=== PATIENT | female | born 1960 | race Caucasian/White ===

== ENCOUNTER → 2022-06-29 13:12 | Outpatient (BNVA) | payer OTHER, SELFPAY | PROVIDERS: Visit Provider Student in an Organized Health Care Education/Training Program | DX: M17.12 Unilateral primary osteoarthritis, left knee (principal) | CPT/HCPCS: 73560; 73565 ==

== ENCOUNTER → 2022-07-05 13:45 | Outpatient (BNVA) | payer OTHER, SELFPAY | PROVIDERS: Visit Provider Physician Assistant | DX: M50.30 Other cervical disc degeneration, unspecified cervical region (principal); M47.22 Other spondylosis with radiculopathy, cervical region | CPT/HCPCS: 72050 ==

== ENCOUNTER 2022-07-18 11:14 | Outpatient (CLI) | payer OTHER, SELFPAY ==
--- NOTE | 2022-07-18 | XRR_ITS ---
[facility] Final Radiology Report Call: [phone] assistance Online chat: [email or web address] Name: NENA FERRELL Age: 61Years F Date: 07/18/2022 SSN: -- : 1960 Study: XR CHEST 1 VIEW Requesting Physician: Navneet Macedo Images: 1 Add?l Studies: Provided Clinical History: pre-op PROCEDURE INFORMATION: Exam: XR Chest Exam date and time: 07/18/2022 12:35 PM Age: 61 years old Clinical indication: Screening exam; Pre-employment physical; Prior surgery; Surgery type: C spine; Additional info: Pre-op TECHNIQUE: Imaging protocol: Radiologic exam of the chest. Views: 1 view. COMPARISON: No relevant prior studies available. FINDINGS: Lungs: Lungs are clear. Pleural spaces: There is no pleural effusion or pneumothorax. Heart/Mediastinum: Cardiomediastinal contours are unremarkable. Bones/joints: Bones are unremarkable. [facility] X[facility]/XR chest 1V [id number] IMPRESSION: No acute findings. Thank you for allowing us to participate in the care of your patient. Dictated and Authenticated by: Keo Barragan MD 07/18/2022 12:55 PM Central Time ([place] & [place])
--- NOTE | 2022-07-18 11:30 | CT_ITS ---
WS: [id number] CT LEFT KNEE, NONCONTRAST TECHNIQUE: Noncontrast CT of the LEFT knee to include the LEFT hip and ankle. CLINICAL INFORMATION: Surgery date 07/25/2022 COMPARISON: None. DLP: 964.[address] scans at [facility] use at least one of these dose optimization techniques: automated e xposure control; mA and/or kV adjustment per patient size (includes targeted exams where dose is matc hed to clinical indication); or iterative reconstruction. FINDINGS: Moderate degenerative narrowing both hips. Moderate to advanced tricompartmental arthritis LEFT knee. Moderate suprapatellar effusion. Hypertrophic patella. Hypertrophic changes along the joint line. De generative arthritis sacroiliac joints. Sigmoid diverticulosis. Normal visualized pubic rami. CT/CT knee [facility] IMPRESSION: Images obtained for preoperative purposes.
== END 2022-07-18 11:15 | disposition home or self-care (01) ==
LOC: RAD 11:16
PROVIDERS: Visit Provider Student in an Organized Health Care Education/Training Program
DX: Z01.818 Encounter for other preprocedural examination (principal); M17.12 Unilateral primary osteoarthritis, left knee
CPT/HCPCS: 71045; 73700

== ENCOUNTER 2022-07-25 11:02 | Observation (INO) | payer OTHER, SELFPAY ==
--- NOTE | 2022-07-18 12:03 | XRR_ITS ---
PROCEDURE INFORMATION: Exam: XR Chest Exam date and time: 07/18/2022 12:35 PM Age: 61 years old Clinical indication: Screening exam; Pre-employment physical; Prior surgery; Surgery type: C spine; Additional info: Pre-op TECHNIQUE: Imaging protocol: Radiologic exam of the chest. Views: 1 view. COMPARISON: No relevant prior studies available. FINDINGS: Lungs: Lungs are clear. Pleural spaces: There is no pleural effusion or pneumothorax. Heart/Mediastinum: Cardiomediastinal contours are unremarkable. Bones/joints: Bones are unremarkable.
--- NOTE | 2022-07-18 13:32 | ANES.PREANE2 ---
Pre-Anesthetic Assessment Height/Weight: Height 1.55 m Weight 93.44 kg Operation Date: 07/25/22 08:55 Proposed Procedures p Left total knee arthroplasty jacqueline [id number],M17.12(Left) - Navneet Macedo DO Familial anesthetic complications: None Social No alcohol and No tobacco Exam alert, oriented x 3, clear to auscultation bilaterally and regular rate & rhythm Airway Dentition: full Comments: Comments: Cervical disc fusion w/ disc replacement - difficulty swallowing chicken CV/HEM Hypertension Metabolic Morbid Obesity Anesthetic Plan ASA status: 2 Anesthesia: Regional (specify below) Risk of > 500 ml blood loss (7ml/kg in children): Yes, adequate IV access and fluids planned Medications/Allergies Home Medications Medication Instructions Recorded Confirmed Last Taken Type citalopram 30 mg capsule mg PO 06/29/22 07/05/22 07/17/22 History gabapentin 300 mg capsule 300 mg PO TID 06/29/22 07/18/22 07/18/22 History hydrochlorothiazide 12.5 mg tablet 12.5 mg PO DAILY 06/29/22 07/18/22 07/18/22 History meloxicam 15 mg tablet 15 mg PO DAILY 06/29/22 07/18/22 07/18/22 History Allergies Allergy/AdvReac Type Severity Reaction Status Date / Time codeine Allergy ALGY-Anaphy Verified 07/18/22 12:47 laxis tylenol 3 Allergy dizzy Uncoded 07/05/22 13:29 Data Anesthesia Cardiac Studies: No Data to Display
[2022-07-18 13:35] LABS: Add Urine Microscopic? NO; Charge for UA Resulting for Rev
[2022-07-18 13:40] LABS: Basophils # 0.1 10^3/uL (0.0-0.1); Basophils % 0.9 %; Eosinophils # 0.2 10^3/uL (0.0-0.8); Eosinophils % 2.5 %; Hematocrit 36.9 % (37.0-47.0); Hemoglobin 11.3 g/dL (11.5-15.3); Lymphocytes # 1.6 10^3/uL (0.8-4.8); Lymphocytes % 19.8 %; Mean Corpuscular HGB Conc 30.6 g/dL (30.0-36.0); Mean Corpuscular Hemoglobin 26.5 pg (28.0-34.0); Mean Corpuscular Volume 86.6 fl (81-99); Monocytes # 0.7 10^3/uL (0.2-0.9); Monocytes % 8.7 %; Neutrophils # 5.44 10^3/uL (1.8-7.7); Neutrophils % 67.7 %; Nucleated Red Blood Cells % 0 %; Platelet Count 326 10^3/cmm (130-400); Red Blood Count 4.26 10^6/uL (4.1-5.3)
[2022-07-18 13:55] LABS: Anion Gap 15.7 (5-19); Blood Urea Nitrogen 20 mg/dL (8-23); Calcium 9.4 mg/dL (8.5-10.5); Carbon Dioxide 23 mmol/L (22-29); Chloride 104 mmol/L (98-107); Glomerular Filtration Rate 63.9 mL/min (90-130); Glucose 94 mg/dL (65-115); Osmolality Calculated 290 mOsm/kg (285-295); Potassium 3.7 mmol/L (3.5-5.1); Sodium 139 mmol/L (136-145)
[2022-07-18 14:15] LABS: Urine Appearance Clear (CLEAR); Urine Color Yellow (Yellow); pH Urine 5 (5-7)
[2022-07-18 14:16] LABS: Bilirubin Urine Neg (Negative); Blood Urine Neg (Negative); Glucose Urine UA Norm (Normal); Ketones Urine Negative (Negative); Leukocyte Esterase Urine Negative (Negative); Nitrate Urine Negative (Negative); Protein Urine Neg (Negative); Urobilinogen Urine Norm (Negative)
[2022-07-25] VITALS (26 sets, daily range): BP systolic 103–164; BP diastolic 65–103; PULSE 58–80; RESP 13–23; TEMP 36.1–36.7; O2SAT 91–99
[2022-07-25] MEDS: acetaminophen 1,000 MG/100 ML PIGGYBACK 400 MG IV ×2 (06:56→16:31)
[2022-07-25] MEDS: lactated ringers 500 ML IV (07:03)
--- NOTE | 2022-07-25 07:08 | P.HPUD_ITS ---
Surgery/Procedure H&P Update DATE OF PROCEDURE: July 25, 2022 DATE H&P PERFORMED: 06/29/22 CHANGES TO PREVIOUS DOCUMENTATION: None PREOP DIAGNOSIS: Left knee degenerative joint disease PRIMARY INDICATION FOR PROCEDURE: Left knee degenerative joint disease failed conservative treatment. Patient is completed preoperative process. And cleared for surgery by Anesthesia Department. Once again reviewing with patient her last injection was roughly over a year ago. She been medically optimized and ready to proceed with a left total knee arthroplasty all questions answered. PLANNED PROCEDURE: Operation Date: 07/25/22 08:15 Proposed Procedures p Left total knee arthroplasty [facility] [id number],M17.12(Left) - Navneet Macedo DO
[2022-07-25] MEDS: ketorolac 30 mg/mL INJ IVP (07:09)
[2022-07-25] MEDS: midazolam 1 mg/mL INJ 2 mL 2 MG IVP (07:33)
[2022-07-25] MEDS: sodium chloride 0.9% 1,000 ML 30 ML IV (07:46)
[2022-07-25] MEDS: ceFAZolin 2,000 MG in sodium chloride 0.9% (plus) 50 ML 100 MG IV ×3 (08:00→23:29)
[2022-07-25] MEDS: ketorolac 30 mg/mL INJ XX (08:54)
[2022-07-25] MEDS: EPINEPHrine 1 mg/mL INJ XX (08:54)
[2022-07-25] MEDS: tranexamic acid 1,000 mg/10mL SDV 1000 MG XX (08:54)
--- NOTE | 2022-07-25 09:43 | P.ANESUD_ITS ---
Pre-Anesthetic Update Pre-Anesthetic Assessment: Date of Surgery/Procedure: 07/25/22 Preop Katrin gnosis: Left knee degenerative joint disease Proposed Procedure: Operation Date: 07/25/22 08:15 Proposed Procedures p Left total knee arthroplasty jacqueline [id number],M17.12(Left) - Navneet Garvin, DO Any changes to Pre-Anesthetic Assessment?: No Last Intake: Intake Last Liquid Date 07/24/22 Last Liquid Time 21:30 Last Solid Date 07/24/22 Last Solid Time 21:30 Labs Last 48hrs: Blood Bank 07/25/22 06:50 Blood Type A Positive Rho(D) Type Positive Antibody Screen Negative Vitals: Temperature 97.5 F L 07/25/22 06:43 Temperature Source Temporal Artery S can 07/25/22 06:43 Pulse Rate 79 07/25/22 06:43 Respiratory Rate 16 07/25/22 06:43 Blood Pressure 157/103 07/25/22 06:43 Blood Pressure Jaye n 121 07/25/22 06:43 Pulse Oximetry 98 07/25/22 06:43 Oxygen Delivery Me thod 07/25/22 06:43 Exam: Pre-Anes Outpt Exam: alert, oriented x 3, clear to auscultation bilaterally and regular rate & rhythm Cardiac Studies: No Data to Display Anesthesia Procedures Nerve Block: Nerve Block 1: Main Anesthesia: spinal anesthesia block Time Out Performed: Yes Consent: requested by attending/covering physician, from patient, risks and benefits reviewed and patient agrees to proceed Nerve block location: adductor canal (left) Anesthesia monitors applied: pulse oximetry, EKG, BP cuff and oxygen Nerve block position: supine Anesthetic Used: ropivicaine 0.5% Amount of anesthesia used (mL): 20 Ultrasound used to: recognize landmarks Nerve Stimulator Used?: No Interscalene/Femoral BLK: 4 stimuplex 21 g needle used for position and inplane approach Injection: neg aspiration of heme Patient Tolerated Procedure: well Complications: none
[2022-07-25] MEDS: fentaNYL 50 mcg/mL INJ 2mL IVP (10:34)
--- NOTE | 2022-07-25 10:44 | XRR_ITS ---
PROCEDURE INFORMATION: Exam: XR Left Knee Exam date and time: 07/25/2022 10:00 AM Age: 61 years old Clinical indication: Device placement; Joint replacement hardware; Prior surgery; Surgery date: Post-operative (0-2 days); Surgery type: Postop tka left TECHNIQUE: Imaging protocol: Radiologic exam of the left knee. Views: 1 or 2 views. AP and Lateral COMPARISON: CT knee LT [facility] 07/18/2022 12:23 PM FINDINGS: Bones/joints: Recent postsurgical changes are seen status post cemented 3 component total knee arthroplasty. There is expected postsurgical alignment. There are no fractures or dislocations. Soft tissues: There is soft tissue gas and swelling seen, related to the recent surgery. Anterior midline knee region superficial skin lj are seen. Notes: Followup radiographs may be obtained for complete assessment. XR/XR knee LT 1-2V [id number] IMPRESSION: Postsurgical changes of the knee status post cemented 3 component total knee arthroplasty, as noted above.
--- NOTE | 2022-07-25 10:48 | PC.NURSE ---
Head ache on arrival. Medicated with some relief. No positional relief.
--- NOTE | 2022-07-25 10:55 | PC.NURSE ---
Caffeine given per Dr Oneal. Cola drank with relief 09/05
[2022-07-25] MEDS: lactated ringers 1,000 ML 100 ML IV ×2 (11:58→22:24)
[2022-07-25] MEDS: chlorhexidine gluconate 0.12% Btl 473 mL 30 ML MUCOUS MEM ×3 (12:06→19:55)
--- NOTE | 2022-07-25 12:10 | P.CONIM_ITS ---
Providers/Reason For Consult Consulting Physician/Specialty*: Sundeep Tan MD, hospitalist. Reason for Consult*: Medical management Requesting Physician: Dr. Macedo Attending Physician: Navneet Macedo DO Primary Care Provider: Dustin Villaseñor MD History of Present Illness History of Present Illness Sarika Victor is a 61 year old female who presented to the hospital today for left total knee arthroplasty secondary to degenerative joint disease. This was performed this morning without complication. I am asked to see the patient regarding her chronic medical conditions, and to follow these while inpatient. She reports she has a little bit of neck pain currently, secondary to her radiculopathy and past surgery. She reports leg pain is currently under control. She denies any recent chest pain, shortness of breath, or any issues with her home medications. Review of Systems General: Reports: 10 or more systems reviewed and unremarkable except in HPI and below Const: Denies: fever(s), chills, fatigue or malaise Card: Denies: chest pain Resp: Denies: dyspnea GI: Denies: hematochezia Musc: Reports: neck pain Psych: Reports: anxiety Medications/Allergies Home Medications Medication Instructions Recorded Confirmed Last Taken Type gabapentin 300 mg capsule 300 mg PO TID 06/29/22 07/25/22 07/25/22 History hydrochlorothiazide 12.5 mg tablet 12.5 mg PO DAILY 06/29/22 07/25/22 07/24/22 H istory meloxicam 15 mg tablet 15 mg PO DAILY 06/29/22 07/18/22 07/18/22 History citalopram 40 mg tablet 40 mg PO DAILY 07/25/22 07/25/22 07/24/22 History Allergies Allergy/AdvReac Type Severity Reaction Status Date / Time codeine Allergy ALGY-Anaphy Verified 07/25/22 06:35 laxis tylenol 3 Allergy dizzy Uncoded 07/25/22 06:35 Current Medications Generic Name Dose Route Start Last Admin Trade Name Freq PRN Reason Stop Dose Admin Chlorhexidine Gluconate 30 ml 07/25/22 13:00 07/25/22 12:06 Chlorhexidine Gluconate 0.12% Btl 473 Ml MUCOUS MEM 30 ml QID ESTEBAN Administration Lactated Ringer's 1,000 mls @ 100 mls/hr 07/25/22 11:33 07/25/22 11:58 Lactated Ringers IV 100 mls/hr .Q10H ESTEBAN Administration PFSH Acute PFSH: Medical History (Updated 07/25/22 @ 12:15 by Sundeep Tan MD) Anxiety and depression Degenerative disc disease, cervical Hypertension Surgical History (Updated 07/25/22 @ 12:12 by Sundeep Tan MD) History of cholecystectomy Status post cervical spinal fusion Family History (Updated 07/25/22 @ 12:13 by Sundeep Tan MD) Other Cancer Social History (Updated 07/25/22 @ 12:13 by Sundeep Tan MD) Smoking and tobacco status: never smoked Alcohol intake: never Vitals/I&O/Wt Last Vital Signs Temp 97.2 F L 07/25/22 11:52 Pulse 64 07/25/22 11:52 Resp 18 07/25/22 11:52 BP 143/77 07/25/22 11:52 Pulse Ox 96 07/25/22 11:52 O2 Del Method 07/25/22 11:52 07/24/22 07/25/22 07/25/22 22:59 06:59 14:59 Intake Total 1797.5 / 1797.5 Output Total 175 / 175 Balance 1622.5 / 1622.5 Physical Exam Narrative: General exam is a female, alert and responsive, status post surgery HEENT: Pupils equally round. Oropharynx clear. Neck is supple no lymphadenopathy or thyromegaly Cardiovascular regular rate and rhythm, no murmur Lungs clear no wheezing or crackles Abdomen is soft nontender positive bowel sounds exam deferred Extremities no cyanosis clubbing or edema. Left knee with dressing. No foot drop is noted on either side. Skin no rash Neuro no obvious focal deficits Urinary Catheter Management: Lancaster: Cath Placed During This Visit: yes Urinary Catheter Date of Insertion: 07/25/22 Urinary Catheter Time of Insertion: 08:20 Data 07/18/22 13:14 07/18/22 13:14 Other Labs: Urinalysis was negative when checked on July 18 Chest x-ray on July 18 demonstrated no infiltrate. Knee x-ray which I reviewed demonstrates the left knee with status post arthroplasty components A&P Assessment and plan (1) Left knee DJD: Status post arthroplasty today. Doing well. Minimal blood loss. CBC will be checked in the morning to make sure no acute postoperative blood loss is detected. Eliquis will be given for DVT prophylaxis. Hold her meloxicam while she is getting Toradol as needed (2) Hypertension: Continue her hydrochlorothiazide, low-dose. I will review her BMP tomorrow as she recently had surgery, is on IV fluids, and if significant fluid shifts may occur. (3) Anxiety and depression: Continue patient's Celexa (4) Cervical spondylosis with radiculopathy: Continue Neurontin, same dose Plan Other medical problems as outlined in past medical history Thank you for this consultation Consult Attestations Medical Necessity Statement: As per primary Diagnoses Left knee DJD M17.12 Hypertension I10 Anxiety and depression F41.9; F32.A Cervical spondylosis with radiculopathy M47.22 Time Spent (min) 46
--- NOTE | 2022-07-25 12:12 | P.OP_ITS ---
Operative Report Date of procedure: July 25, 2022 Pre-op diagnosis: Preop Diagnosis Left knee degenerative joint disease Procedure: Post-op diagnosis: Same Procedure done: Left total knee arthroplasty, cemented?robotic assisted Sai Implants: Moro triathlon size 3 femur? CR cemented Jessica triathlon size 2 tibia universal baseplate cemented Moro triathlon asymmetric patella size 29 mm Jessica triathlon polyethylene 12 mm Surgeon: Navneet Macedo DO Estimated blood loss: 25 mL Tourniquet time: 70 minutes IV fluids: 1000 mL Urine output: 100mL Complications: None Condition: stable Disposition: floor Brief History: Sarika is a pleasant 61-year-old female established in my practice with chronic left knee degenerative joint disease.? pts has had injections that have failed conservative treatment..? We talked about continued conservative approach versus operative intervention for her left knee given the [id number] arthritis and tricompartmental degenerative changes would recommend a left total knee arthroplasty as she has failed conservative treatment.? Through shared decision making she would like to proceed with this. ? We talked about continued conservative treatment and surgical intervention as far as the risk benefits complications alternatives surgical and nonsurgical treatment options.? At this point time understanding pts risks with surgery pt agrees to proceed with surgical intervention.? Once again? risk with surgery include but are not limited to make it better make it worse blood clot, heart attack, stroke, on the table, infection, injury to nerves or vessels, persistent pain, arthrofibrosis, implant failure.? Understanding these risks he agrees to proceed with surgical intervention consent was obtained in the office.? All questions answered. Procedure: Patient was seen and evaluated in the preoperative holding area.? Consent was reviewed and signed with patient with plan for left total knee arthroplasty.? All questions answered.? Correct extremities marked.? Patient seen and evaluated by the anesthesia department and once cleared for surgery was taken back to the operative suite.? Patient was placed into a supine position on the OR table.? All bony prominences were well-padded.? Patient was appropriately secured to the bed.? Patient underwent anesthesia per the anesthesia department.? Patient received spinal anesthesia and Lancaster catheter was placed.? A nonsterile tourniquet was applied to the left thigh.? At this point in time a final timeout performed.? Patient received appropriate preoperative antibiotics and TXA. Next the the left lower extremity was then prepped and draped in standard orthopedic fashion.?Esmarch tourniquet was used exsanguinate the left lower extremity.? Tourniquet was insufflated to 300 mmHg. A standard anterior incision was made over midline of the knee.? Sharp scalpel excision through skin and subcutaneous tissue full-thickness skin flaps were made.? Fascia was elevated off of the extensor retinaculum was stable with medial parapatellar arthrotomy was then made.? The performed standard sequential releases with small medial releases patient had a valgus deformity.? Visualization of all 3 compartments was found to have eburnated bone in all 3 compartments with osteophyte formation.? Most pronounced lateral joint space collapse with [id number] articulation.? Next the the patella was then stuffed laterally and the knee was then flexed.? Neno was placed superiorly and medial around the anterior aspect of the femur this was freed of synovium and I subsequently then placed by 2 femur pins to establish my femur arrays for the Sai robot.? These were then placed bicortically and? femur array was then appropriately secured with appropriate visualization.? Next attention was turned towards the tibial rays.? These were then drilled sequentially bicortically in parallel fashion and intraincisional.? I then placed my guide as well as my tibial array on in place.? This was appropriately secured and had excellent visualization with the Sai robot.? Next the tibial checkpoint as well as femur checkpoint were then placed.? At this point time I then subsequently established my head center as well as my medial and lateral malleoli as well as my checkpoints.? Next utilizing standard Sai technology I then mapped out the appropriate points and confirmation points around the femur as well as the tibia in standard fashion.? Once this was then done I then removed all osteophytes in preparation for dynamic testing.? All osteophytes were removed as well as I removed the ACL and left the PCL intact.? Anterior horn of the lateral meniscus was excised.? At this point time the knee was brought into full extension and we performed our standard evaluation of our gap balancing stressing? ligaments and extension as well as flexion appropriate adjustments were made to have appropriate gap balancing in both flexion and extension.? Made appropriate adjustments for appropriate gap balancing altering our femoral and tibial cuts.? We get a preoperative plan evaluating our implants which was a size 3 femur and a size 2 tibia.? Next we brought in the [employer] robot and sequentially made our femur cuts.? All? bony cuts were then removed.? Finally we made our tibial cut.? Once this was done a standard PCL retractor was then placed into this position I excised the medial and lateral meniscus.? The tibial cut was then subsequently removed all excess bony debris was removed.?? I then utilized a lamina strategy analyst and remove the posterior osteophytes.? At this point time sized the tibia and confirmed this was a size 2.? I utilized our blunt probe to establish rotation of tibial implant using [employer] robot technology.? Once this was done I then placed my tibia size 2 trial in appropriate position and then subsequently placed tibial pins to hold this into place placed a size 12 mm poly as well as a size 3 femur which was appropriately impacted in place knee was then subsequently brought into extension.? Patient was found to be balanced in extension.? Slight tightness flexion standard electrocautery release of the proximal portion of the PCL was performed off the femur this created a balanced flexion gap.? Plan was to use an ultracongruent poly at this point i was satisfied with varus valgus stress as well as extension with no hyperextension and no residual flexion deformity as patient was able achieve full extension and patient had appropriate flexion with symmetric gaps. .? Once this was done I had excellent balance gaps in flexion and extension with varus and valgus stresses.? At this point I was satisfied with these implants I called open the implants and these were then verified and opened on the back table size 2 tibia, size 3 femur,? size 12 mm polythickness.? We did confirm appropriate gap balancing and stresses as well as alignment utilizing? Sai and were satisfied with this plan.? ?At this point time with my trials in place I then towel clip the patella everted this made appropriate measurements subsequently utilizing freehand technique performed by patellar resurfacing this was confirmed to be appropriate resection and subsequently sized to be a 29 symmetric. My drill peg guides were then clamped and appropriate position and appropriate position in the patella for appropriate tracking and parallel with the joint.? Pegs were drilled trial implant was placed and the knee was then subsequently ranged and found to have excellent patellar tracking.? Femur pegs were then drilled.? Satisfied with our tibial placement rotation I then utilized the keel punch and prepped the tibia.? At this point time all of our trial implants were removed.? All checkpoints as well as guidepins and arrays were removed and appropriate counts made.? The wound bed? was thoroughly irrigated and dried and prepped for cementation.? Cement was mixed on the back table.? Once cement was ready this was then covered onto the tibia and the tibial baseplate was then impacted and all excess cement was removed.? Next the polyethylene was then impacted into place on the tibial baseplate.? Next cement was placed onto the femur as well as under the femur implants and impacted in to place and all excess cement was extruded.? Knee was taken into full extension? to clear all excess cement was removed.? Warm saline was placed over the joint.? I then towel clip patella and dried for cementation. cemented the patella implant into place.? This was all clamped and the cement was allowed to cure.? Thorough irrigation performed with pulse lavage.? I then placed my periarticular injection while the cement was curing.? Once cured the knee was taken through range of motion and had excellent stability and gaps balances.? Tourniquet was then deflated.? Once tourniquet was deflated hemostasis satisfactory with electrocautery.? Next I then subsequently closed the capsule with Ethibond suture as well as a running strata fix suture.? Knee was then taken through range of motion 30 times.? Next the skin was then closed in layered fashion of running stratifix sutures of deep and subcutenous tissue and skin.? Patient was closed in flexion with lj for skin.? Incision was covered with OpSite, ABDs soft roll and Selvin wrap.? Patient was then awakened from anesthesia and taken to PACU in stable condition. Disposition: Patient taken to PACU in stable condition will be admitted to the floor for pain control PT/OT weight-bear as tolerated left lower extremity dressing changes as needed, DVT prophylaxis.?Pain control. Patient will receive appropriate postoperative antibiotics. patient will be seen today by the internal medicine team for medical management.? Patient will follow up with the office in 2 weeks.? Patient understands agrees with current plan.? All questions answered.
--- NOTE | 2022-07-25 12:12 | PM.OP2 ---
Brief Operative Note Date of procedure: 07/25/22 Pre-op diagnosis: Left knee degenerative joint disease Post-op diagnosis: same Procedure Done: Left total knee arthroplasty, cemented?Sai robotic assisted Surgeon: Navneet Macedo Estimated blood loss (mL): 25 Complications: None Post-op Plan: Patient taken to PACU in stable condition recovering well. Patient will be admitted to the floor postoperatively internal medicine will be on board for medical management assistance. Receive appropriate discharge structure as well as pain medication postoperatively. Received appropriate postoperative antibiotics pain control, DVT prophylaxis, TXA, PT/OT weight-bear as tolerated left lower extremity. We will follow-up with me in the office in 2 weeks. Condition: stable Disposition: floor Coding Level of Care Code Acute Code for Klarissa Giron
--- NOTE | 2022-07-25 12:12 | PM.PACU ---
PACU note Narrative: Patient taken to PACU in stable condition. Spinal anesthesia still in effect unable to assess motor and sensory. Dressing on in place clean dry and intact distal pulses are palpable toes warm well perfused. Exam: awake Disposition: admitted
[2022-07-25] MEDS: gabapentin 300 mg Capsule PO (16:31)
--- NOTE | 2022-07-25 16:53 | ANE.PACU2 ---
Inpatient post-anesthesia follow up: Airway intact: Yes Vital signs: Temperature 97.2 F Pulse Rate 69 Respiratory Rate 18 Blood Pressure 164/79 Pulse Oximetry 98 Oxygen Delivery Me thod Room Air Oxygen Flow Rate Fraction of Inspir ed Oxygen Hydration adequate: Yes Nausea and vomiting: No Pain level: 1 Mental status: Baseline
[2022-07-25] MEDS: calcium carbonate 500 mg Chew Tablet 1000 MG PO (17:29)
[2022-07-25] MEDS: docusate sodium 100 mg Capsule PO (17:29)
[2022-07-25] MEDS: mupirocin oint 22 gm 1 APPLIC NASAL (17:29)
[2022-07-25] MEDS: iron polysaccharide complex 150 mg Capsule PO (17:29)
--- NOTE | 2022-07-25 17:41 | PC.NURSE ---
Patient arrived to unit from PACU, no c/o pain, AAOx4, VSS, family at bedside. Patient concerned about her Gabapentin as she takes more than what we have in JUN. This nurse called patients pharmacy to verify med order and received ok to change order from Physician. No needs at this time. Bed locked and patient OOBT BSC with standby assist. Room clean and clutter free with call light in reach.
[2022-07-25] MEDS: ketorolac 30 mg/mL INJ 15 MG IVP (19:13)
[2022-07-25] MEDS: gabapentin 400 mg Capsule 1200 MG PO (19:54)
[2022-07-25] MEDS: oxyCODONE 5 mg IR Tab/Cap PO ×2 (19:54→23:27)
[2022-07-25] MEDS: methocarbamol 500 mg Tablet PO (21:51)
[2022-07-25] MEDS: acetaminophen 1,000 MG/100 ML PIGGYBACK 200 MG IV (22:24)
[2022-07-25] MEDS: TRAMadol 50 mg Tablet PO (23:27)
[2022-07-25] MEDS: HYDROmorphone 1 mg/mL INJ 1 mL 0.5 MG IVP (23:39)
[2022-07-26] VITALS (11 sets, daily range): BP systolic 135–156; BP diastolic 68–91; PULSE 65–76; RESP 16–22; TEMP 36.6–37; O2SAT 90–96
[2022-07-26] MEDS: ketorolac 30 mg/mL INJ 15 MG IVP ×2 (01:11→18:26)
[2022-07-26] MEDS: HYDROmorphone 1 mg/mL INJ 1 mL 0.5 MG IVP ×3 (03:49→21:01)
[2022-07-26 05:07] LABS: Basophils % 0.4 %; Hemoglobin 10.1 g/dL (11.5-15.3); Lymphocytes # 0.7 10^3/uL (0.8-4.8); Lymphocytes % 6.2 %; Mean Corpuscular HGB Conc 30.6 g/dL (30.0-36.0); Mean Corpuscular Hemoglobin 26.3 pg (28.0-34.0); Mean Corpuscular Volume 85.9 fl (81-99); Mean Platelet Volume 10.3 fL (7.4-10.4); Monocytes # 0.9 10^3/uL (0.2-0.9); Monocytes % 8.2 %; Neutrophils # 9.05 10^3/uL (1.8-7.7); Neutrophils % 84.7 %; Nucleated Red Blood Cells % 0 %; Platelet Count 276 10^3/cmm (130-400); Red Blood Count 3.84 10^6/uL (4.1-5.3); Red Cell Distribution Width 14.6 % (12.1-15.1); White Blood Count 10.7 10^3/uL (4.0-10.0)
[2022-07-26 05:35] LABS: Anion Gap 13.3 (5-19); Blood Urea Nitrogen 18 mg/dL (8-23); Calcium 8.5 mg/dL (8.5-10.5); Carbon Dioxide 22 mmol/L (22-29); Chloride 97 mmol/L (98-107); Glomerular Filtration Rate 85.4 mL/min (90-130); Glucose 110 mg/dL (65-115); Osmolality Calculated 269 mOsm/kg (285-295); Potassium 4.3 mmol/L (3.5-5.1); Sodium 128 mmol/L (136-145)
[2022-07-26] MEDS: oxyCODONE 5 mg IR Tab/Cap PO ×3 (06:45→17:34)
[2022-07-26] MEDS: acetaminophen 1,000 MG/100 ML PIGGYBACK 200 MG IV (06:46)
[2022-07-26] MEDS: multivitamin therapeutic Tablet 1 TAB PO (08:30)
[2022-07-26] MEDS: cholecalciferol (vitamin D3) 1,000 unit Tablet 1000 UNIT PO (08:30)
[2022-07-26] MEDS: docusate sodium 100 mg Capsule PO ×2 (08:30→18:19)
[2022-07-26] MEDS: calcium carbonate 500 mg Chew Tablet 1000 MG PO ×2 (08:30→18:18)
[2022-07-26] MEDS: gabapentin 400 mg Capsule 1200 MG PO ×3 (08:30→21:02)
[2022-07-26] MEDS: citalopram 20 mg Tablet 40 MG PO (08:30)
[2022-07-26] MEDS: iron polysaccharide complex 150 mg Capsule PO ×2 (08:30→18:19)
[2022-07-26] MEDS: apixaban 5 mg Tablet 2.5 MG PO ×2 (08:31→18:19)
[2022-07-26] MEDS: ceFAZolin 2,000 MG in sodium chloride 0.9% (plus) 50 ML 100 MG IV (08:31)
[2022-07-26] MEDS: FUROsemide 20 mg Tablet PO (09:24)
--- NOTE | 2022-07-26 09:36 | PM.PN ---
Subjective Subjective: Sarika reports she feels okay. Pain is under control. No events last night other than some difficulty sleeping. Medications: Reviewed: Yes Vitals/I&O/Wt Last Vital Signs Temp 97.9 F 07/26/22 08:00 Pulse 65 07/26/22 08:00 Resp 18 07/26/22 08:00 BP 144/82 07/26/22 08:00 Pulse Ox 95 07/26/22 08:00 O2 Del Method 07/26/22 08:00 07/25/22 07/26/22 07/26/22 22:59 06:59 14:59 Intake Total 1979 4737.5 150 / 4887.5 1878.333 / 1878.333 Balance 1979 4562.5 150 / 4712.5 1878.333 / 1878.333 Physical Exam Narrative: General exam no distress Cardiovascular regular rate and rhythm, no murmur Lungs clear no wheezing or crackles Abdomen is soft nontender positive bowel sounds exam deferred Extremities no cyanosis clubbing or edema. Left knee with dressing. No foot drop is noted on either side. Urinary Catheter Management: [place]: Cath Placed During This Visit: yes, but has since been removed by the nurse Reason for Continuing Indwelling Catheter: Decision to DC Catheter Urinary Catheter Date of Insertion: 07/25/22 Urinary Catheter Time of Insertion: 08:20 Date Urinary Catheter Removed: 07/25/22 Time Urinary Catheter Discontinued: 15:45 Data 07/26/22 04:55 07/26/22 04:55 A&P Assessment and plan (1) Left knee DJD: Postoperative day #1 status post arthroplasty. Overall doing well. Hemoglobin dropped minimally. Eliquis will be given for DVT prophylaxis. Hold her meloxicam while she is getting Toradol as needed (2) Hypertension: Hold hydrochlorothiazide today as sodium is low (3) Anxiety and depression: Continue patient's Celexa (4) Cervical spondylosis with radiculopathy: Continue Neurontin, same dose Plan Hyponatremia. Hold hydrochlorothiazide today. Discontinue fluids. Lasix 20 mg x 1. Repeat sodium around 1 PM. Other medical problems as outlined in past medical history Thank you for this consultation Consider repeat sodium as outpatient with primary care provider in the next 5 to 7 days of discharge today. Attestations Medical Necessity Statement*: As per primary Coding Level of Care Code Acute Code for Chg Fwd Diagnoses Left knee DJD M17.12 Hypertension I10 Anxiety and depression F41.9; F32.A Cervical spondylosis with radiculopathy M47.22
--- NOTE | 2022-07-26 10:57 | PC.CHAP ---
Pastoral Care Encounter/Spiritual Assessment Type of Contact [] Declined two way radio technician visit [] Patient/Family/Request visit [] Outpatient visit [] Follow-up visit [] Physician referral [] Code/Alert [x] Routine visit [] Staff referral [] Actively dying [] Patient sleeping [] Family support [] [] Out of room [] Palliative care [] [x] Receiving care in room [x] Pre-surgical visit [] Trauma [] Long length of stay [] ICU visit [] Other: Relational/Emotional Strength [x] Patient feels connected with others/family/visitors/staff [] Distress [] Loneliness/isolation [] Abandonment Spirituality of Patient [x] Person of Tegan [] Attends Gnosticism of their Tegan [x] Believes in Prayer [] Reads Bible or Druze materials [] There are Spiritual issues to be addressed Poultry And Fish Butcher Interventions [x] Prayer [x] Active listening [x] Non-anxious presence [x] Spiritual/emotional support [] Crisis/trauma care [x] Spiritual counseling [] Bereavement support [] Provided bereavement packet [] Provided Bible/devotional materials [] Provided toy/stuffed animal, coloring book to patient or family member [] Provided Communion [] Anointing/[place] [] Salvation [x] Completed spiritual assessment [] Other: Impact on Illness or Injury [] Angry [] Fearful [] Anxious [] Often cries [] Exhaustion [] Unable to work [] Unable to attend mu-ism [] Unable to walk/stand [] Unable to read [] Unable to drive [] Unable to eat/drink [] Unable to sleep [] Unable to be with family [] Patient intubated [] Other: Summary gettiing ready to go into gal-blader surgery +1 Time spent with patient 10 mins
[2022-07-26] MEDS: acetaminophen 325 mg Tablet 650 MG PO ×2 (11:01→17:36)
[2022-07-26 13:26] LABS: Sodium 124 mmol/L (136-145)
[2022-07-26] MEDS: sodium chloride 1 gm Tablet PO ×2 (14:19→18:18)
[2022-07-26] MEDS: FUROsemide 10 mg/mL SDV 4mL 40 MG IVP (14:19)
--- NOTE | 2022-07-26 17:17 | P.PN_ITS ---
Subjective Subjective: Patient seen evaluated postop day 1. Patient states ready for discharge today. Internal medicine on board and appreciate medical management and assistance. Patient is gotten up and worked well with therapy. Pain controlled. Dressings clean dry and intact. Vitals/I&O/Wt Last Vital Signs Temp 98.1 F 07/26/22 16:00 Pulse 73 07/26/22 16:00 Resp 19 H 07/26/22 16:00 BP 135/78 07/26/22 16:00 Pulse Ox 95 07/26/22 16:00 O2 Del Method 07/26/22 16:00 07/26/22 07/26/22 07/26/22 06:59 14:59 22:59 Intake Total 150 / 4887.5 3278.333 / 3278.333 Output Total 1200 / 1200 400 / 1600 Balance 150 / 4712.5 2078.333 / 2078.333 -400 / 1678.333 Physical Exam Narrative: Dressings on in place clean dry and intact. Compartment soft compressible. Calf soft and nontender. Able to wiggle toes plantarflex and dorsiflex ankle with good resistance. Distal pulses are palpable toes warm well-perfused brisk capillary refill less than 2 seconds. Sensation intact l ight touch distally Urinary Catheter Management: [place]: Cath Placed During This Visit: yes, but has since been removed by the nurse Reason for Continuing Indwelling Catheter: Decision to DC Catheter Urinary Catheter Date of Insertion: 07/25/22 Urinary Catheter Time of Insertion: 08:20 Date Urinary Catheter Removed: 07/25/22 Time Urinary Catheter Discontinued: 15:45 Data 07/26/22 04:55 07/26/22 13:03 Xray Ortho: My impression: Postoperative x-ray demonstrates stable left total knee arthroplasty in good alignment positioning with appropriate cement mantle no periprosthetic fracture dislocation noted. A&P Assessment and plan (1) Status post total left knee replacement: Plan Weight-bear as tolerated left lower extremity PT/OT Dressing change as needed if saturated DVT prophylaxis?Girma Dang labs reviewed Internal medicine on board for medical management?patient had drop in sodium and they would like to observe overnight and supplement with sodium tablets. Patient will stay overnight for observation and monitoring of her sodium levels with plan for hopeful discharge tomorrow PACU x-rays reviewed Completed postoperative antibiotics Pain control Orthopedics will continue to follow-patient currently stable from orthopedic standpoint for discharge was planning on discharge today however was reached out by internal medicine and given she had a larger than normal drop in her sodium levels they recommended observation after the plan for replacement today. Discussed with patient and agreeable and will stay till tomorrow morning as long as labs look okay we will likely discharge if medicine deems okay/stable for discharge Attestations Medical Necessity Statement*: Ongoing care postoperative left total knee arthroplasty Coding Level of Care Code Acute Code for Chg Fwd Diagnoses Status post total left knee replacement Z96.652 Time Spent (min) 25
[2022-07-26] MEDS: methocarbamol 500 mg Tablet PO (18:26)
[2022-07-26 18:55] LABS: Sodium 131 mmol/L (136-145)
[2022-07-26] MEDS: chlorhexidine gluconate 0.12% Btl 473 mL 30 ML MUCOUS MEM (21:02)
[2022-07-27] VITALS (7 sets, daily range): BP systolic 114–149; BP diastolic 66–82; PULSE 63–88; RESP 14–20; TEMP 36.2–37.1; O2SAT 92–96
[2022-07-27] MEDS: ketorolac 30 mg/mL INJ 15 MG IVP (01:04)
[2022-07-27] MEDS: oxyCODONE 5 mg IR Tab/Cap PO ×2 (01:04→08:22)
[2022-07-27] MEDS: HYDROmorphone 1 mg/mL INJ 1 mL 0.5 MG IVP (04:34)
[2022-07-27 05:06] LABS: Basophils % 0.4 %; Eosinophils # 0.1 10^3/uL (0.0-0.8); Eosinophils % 1.2 %; Hematocrit 31.5 % (37.0-47.0); Hemoglobin 9.9 g/dL (11.5-15.3); Lymphocytes # 1.2 10^3/uL (0.8-4.8); Lymphocytes % 12.9 %; Mean Corpuscular HGB Conc 31.4 g/dL (30.0-36.0); Mean Corpuscular Hemoglobin 26.7 pg (28.0-34.0); Mean Corpuscular Volume 84.9 fl (81-99); Mean Platelet Volume 10.3 fL (7.4-10.4); Monocytes # 1.3 10^3/uL (0.2-0.9); Monocytes % 14.6 %; Neutrophils # 6.38 10^3/uL (1.8-7.7); Neutrophils % 70.6 %; Nucleated Red Blood Cells % 0 %; Platelet Count 271 10^3/cmm (130-400); Red Blood Count 3.71 10^6/uL (4.1-5.3); Red Cell Distribution Width 14.5 % (12.1-15.1); White Blood Count 9.1 10^3/uL (4.0-10.0)
[2022-07-27 05:29] LABS: Anion Gap 14.7 (5-19); Blood Urea Nitrogen 16 mg/dL (8-23); Calcium 9.1 mg/dL (8.5-10.5); Carbon Dioxide 26 mmol/L (22-29); Chloride 94 mmol/L (98-107); Glomerular Filtration Rate 85.4 mL/min (90-130); Glucose 109 mg/dL (65-115); Osmolality Calculated 274 mOsm/kg (285-295); Potassium 3.7 mmol/L (3.5-5.1); Sodium 131 mmol/L (136-145)
[2022-07-27] MEDS: docusate sodium 100 mg Capsule PO (08:16)
[2022-07-27] MEDS: cholecalciferol (vitamin D3) 1,000 unit Tablet 1000 UNIT PO (08:16)
[2022-07-27] MEDS: calcium carbonate 500 mg Chew Tablet 1000 MG PO (08:16)
[2022-07-27] MEDS: citalopram 20 mg Tablet 40 MG PO (08:16)
[2022-07-27] MEDS: multivitamin therapeutic Tablet 1 TAB PO (08:16)
[2022-07-27] MEDS: sodium chloride 1 gm Tablet PO (08:16)
[2022-07-27] MEDS: gabapentin 400 mg Capsule 1200 MG PO (08:16)
[2022-07-27] MEDS: FUROsemide 20 mg Tablet PO (08:17)
[2022-07-27] MEDS: apixaban 5 mg Tablet 2.5 MG PO (08:17)
[2022-07-27] MEDS: iron polysaccharide complex 150 mg Capsule PO (08:17)
[2022-07-27] MEDS: acetaminophen 325 mg Tablet 650 MG PO (08:22)
[2022-07-27] MEDS: methocarbamol 500 mg Tablet PO (08:22)
--- NOTE | 2022-07-27 08:45 | P.DS_ITS ---
Discharge Providers Date of Admission: 07/25/22 11:02 Date of Discharge: July 27, 2022 Attending Provider at Admission: Navneet Macedo DO Attending Provider at Discharge: Navneet Macedo DO Consults: Dr. Tan?hospitalist Primary Care Provider: Dustin Villaseñor MD Diagnoses at Discharge Discharge Diagnosis (1) Left knee DJD: Status: Resolved (2) Hypertension: Status: Acute (3) Anxiety and depression: Status: Acute (4) Cervical spondylosis with radiculopathy: Status: Acute Reason for Visit Reason for Visit: M17.12 Brief History: Left knee degenerative joint disease?left total knee arthroplasty Hospital Course Hospital Course Patient is a pleasant 61-year-old female who presented to the hospital for left total knee arthroplasty. She underwent preoperative evaluation in the PACU where she initially presented to the hospital. Once cleared for surgery she subsequently underwent anesthesia per the anesthesia department and underwent a left total knee arthroplasty without any complications she was taken to PACU in stable condition and then patient was subsequently recovered in PACU and transferred admitted to the floor. Patient was received appropriate pain control and medications DVT prophylaxis postoperative antibiotics as well as postoperative TXA. Will be weightbearing as tolerated to the left lower extremity work with PT/OT. Patient progressed well through her postoperative course. A.m. labs were checked. She did have a decrease in her sodium on postop day 1 and this was managed and monitored by the internal medicine team and appropriate replacement medications were performed formed and used and she was checked on postoperative day 2 and her labs have returned to near normal and she was deemed stable for discharge from orthopedic standpoint as well as internal medicine. She progressed well with therapy and plan for discharge home on postoperative day 2 with home and home health care. Patient will receive appropriate discharge instruction as well as pain medication and DVT prophylaxis postoperatively. She will follow-up with me in the office in 2 weeks. Patient understands and agrees with current plan. All questions answered. Physical Exam Narrative: Patient was not seen and examined by me day of surgery as she was already stable from orthopedic standpoint and patient was being observed from medical standpoint. I was in surgery and internal medicine had contacted me to update me her sodium levels were good and she was stable for discharge. This point time is agreeable for discharge with patient unfortunately was unable to see patient prior to discharge secondary to being in the OR. Phone call was subsequently made and spoke with daughter said patient was resting comfortably and doing well postoperatively at home. States dressings on in place and clean dry and intact. Her toes were warm well perfused. Urinary Catheter Management: [place]: Cath Placed During This Visit: yes, but has since been removed by the nurse Reason for Continuing Indwelling Catheter: Decision to DC Catheter Urinary Catheter Date of Insertion: 07/25/22 Urinary Catheter Time of Insertion: 08:20 Date Urinary Catheter Removed: 07/25/22 Time Urinary Catheter Discontinued: 15:45 Discharge Data Studies Completed and Pending Completed Studies During Hospitalization Category Date Time Status XR knee LT 1-2V 19456 Routine Exams 07/25/22 10:44 Completed Pending at discharge Category Date Time Status Basic Metabolic Panel AM LABS Lab 07/28/22 04:00 Ordered Complete Blood Count w/Auto AM LABS Lab 07/28/22 04:00 Ordered Radiology Impressions Knee X-Ray 07/25/22 10:44 IMPRESSION: Postsurgical changes of the knee status post cemented 3 component total knee arthroplasty, as noted above. Laboratory Results WBC 9.1 10^3/uL (4.0-10.0) 07/27/22 04:50 RBC 3.71 10^6/uL (4.1-5.3) L 07/27/22 04:50 Hgb 9.9 g/dL (11.5-15.3) L 07/27/22 04:50 Hct 31.5 % (37.0-47.0) L 07/27/22 04:50 MCV 84.9 fl (81-99) 07/27/22 04:50 MCH 26.7 pg (28.0-34.0) L 07/27/22 04:50 MCHC 31.4 g/dL (30.0-36.0) 07/27/22 04:50 RDW 14.5 % (12.1-15.1) 07/27/22 04:50 Plt Count 271 10^3/cmm (130-400) 07/27/22 04:50 MPV 10.3 fL (7.4-10.4) 07/27/22 04:50 Neut % (Auto) 70.6 % 07/27/22 04:50 Lymph % (Auto) 12.9 % 07/27/22 04:50 Bacon % (Auto) 14.6 % 07/27/22 04:50 Eos % (Auto) 1.2 % 07/27/22 04:50 Baso % (Auto) 0.4 % 07/27/22 04:50 Neut # (Auto) 6.38 10^3/uL (1.8-7.7) 07/27/22 04:50 Lymph # (Auto) 1.2 10^3/uL (0.8-4.8) 07/27/22 04:50 Bacon # (Auto) 1.3 10^3/uL (0.2-0.9) H 07/27/22 04:50 Eos # (Auto) 0.1 10^3/uL (0.0-0.8) 07/27/22 04:50 Baso # (Auto) 0.0 10^3/uL (0.0-0.1) 07/27/22 04:50 Nucleated RBC % (auto) 0 % 07/27/22 04:50 Nucleated RBCs # 0.0 /100WBC 07/27/22 04:50 Sodium 131 mmol/L (136-145) L 07/27/22 04:50 Potassium 3.7 mmol/L (3.5-5.1) 07/27/22 04:50 Chloride 94 mmol/L (98-107) L 07/27/22 04:50 Carbon Dioxide 26 mmol/L (22-29) 07/27/22 04:50 Anion Gap 14.7 (5-19) 07/27/22 04:50 BUN 16 mg/dL (8-23) 07/27/22 04:50 Creatinine 0.7 mg/dL (0.5-0.9) 07/27/22 04:50 GFR Calculation 85.4 mL/min (90-130) L 07/27/22 04:50 Glucose 109 mg/dL (65-115) 07/27/22 04:50 Calculated Osmolality 274 mOsm/kg (285-295) L 07/27/22 04:50 Calcium 9.1 mg/dL (8.5-10.5) 07/27/22 04:50 Urine Color Yellow (Yellow) 07/18/22 13:14 Urine Appearance Clear (CLEAR) 07/18/22 13:14 Urine pH 5 (5-7) 07/18/22 13:14 Ur Specific [place] 1.020 (1.005-1.030) 07/18/22 13:14 Urine Protein Neg (Negative) 07/18/22 13:14 Urine Glucose (UA) Norm (Normal) 07/18/22 13:14 Urine Ketones Negative (Negative) 07/18/22 13:14 Urine Blood Neg (Negative) 07/18/22 13:14 Urine Nitrate Negative (Negative) 07/18/22 13:14 Urine Bilirubin Neg (Negative) 07/18/22 13:14 Urine Urobilinogen Norm mg/dL (Negative) 07/18/22 13:14 Ur Leukocyte Esterase Negative (Negative) 07/18/22 13:14 Blood Type A Positive 07/25/22 06:50 Rho(D) Type Positive 07/25/22 06:50 Antibody Screen Negative 07/25/22 06:50 Procedures Performed Left total knee arthroplasty, cemented?Sai robotic assisted Vitals Last Vital Signs Temp 98.5 F 07/27/22 08:00 Pulse 66 07/27/22 08:00 Resp 18 07/27/22 08:22 BP 149/82 07/27/22 08:00 Pulse Ox 93 07/27/22 08:00 O2 Del Method 07/27/22 04:00 O2 Flow Rate 0 07/27/22 07:41 Discharge Plan Discharge Patient Disposition: Home Condition: Stable Prescriptions: New Colace 100 mg capsule 100 mg PO DAILY PRN (Reason: constipation) 10 Days Qty: 10 0RF Eliquis 2.5 mg tablet 2.5 mg PO BID 14 Days Qty: 28 0RF Percocet 5-325 mg tablet 1 tab PO Q6H PRN (Reason: pain) 7 Days Qty: 28 0RF ondansetron 4 mg tablet,disintegrating 4 mg PO DAILY 5 Days Qty: 5 0RF furosemide 20 mg Tablet 20 mg PO DAILY@0800 Qty: 30 0RF Continued gabapentin 300 mg capsule 300 mg PO TID meloxicam 15 mg tablet 15 mg PO DAILY citalopram 40 mg Tablet 40 mg PO DAILY gabapentin 600 mg tablet 1,200 mg PO TID Discontinued hydrochlorothiazide 12.5 mg tablet 12.5 mg PO DAILY Discharge Orders: Discharge Order (Routine); Ordered 07/27/22 Ordered By: Sundeep Tan Other Ambulatory Orders: DME: Walker (Order) Location: None Selected Ordered By: Navneet Macedo Physical Therapy Eval and Treat Outpatient (Order) Timeframe: 3 Days Facility: [facility] - Location: Physical Therapy Ordered By: Navneet Macedo Referrals: [facility] [place] [Outside] [facility] [Outside] Navneet Macedo DO [Physician] - 08/10/22 11:15 am Dustin Villaseñor MD [Primary Care Provider] - 08/01/22 9:00 am (BMP on follow up, hyponatremia) Discharge Diet: Advance as tolerated Discharge Activity: Increase activity as tolerated Patient Instructions: Furosemide (By mouth), Oxycodone/Acetaminophen (By mouth), Ondansetron (By mouth) (Zofran, Zofran ODT, Zuplenz), Apixaban (By mouth) (Eliquis), Osteoarthritis (DC), Hyponatremia (DC), Cervical Spinal Stenosis (DC), Revision Total Joint Arthroplasty (DC), Opioid Safety Activity Restrictions/Additional Instructions: Orthopedic discharge instructions: Weightbearing as tolerated to the left lower extremity Leave dressing on in place for 72 hours postoperatively. May remove Selvin wrap and cotton padding leave white bandage on and in place. Sponge bath around. Keep incision clean dry and intact. After 1 week okay to remove white bandage and may clean incision with warm soapy water pat dry and redress with a dry dressing Range of motion to the left knee as tolerated Take pain medication as prescribed Take antinausea medication as needed Supplement with Colace for constipation if needed Take Eliquis (blood thinner) for 2 weeks postoperatively for blood clot preventi on Ice and elevate as needed for pain and swelling Utilize MATTHEW hose or compression stocks for lower extremity pain and swelling Follow-up with Dr. Macedo in the office in 2 weeks Contact the office for any questions or concerns Follow up with your PCP 3-5 days with BMP. Take all meds as prescribed. Discharge Attestations Time Spent in Discharge Care*: less than 30 min Quality Metrics Clinical Quality Measures [ No reported AMI, CVA or VTE this stay] Coding Level of Care Code Acute Code for Chg Fwd Diagnoses Left knee DJD M17.12 Hypertension I10 Anxiety and depression F41.9; F32.A Cervical spondylosis with radiculopathy M47.22
--- NOTE | 2022-07-27 08:49 | P.PN_ITS ---
Subjective Subjective: Sarika reports she is doing well. Has some left knee pain as to be expected. No dizziness, nausea, weakness. Medications: Reviewed: Yes Vitals/I&O/Wt Last Vital Signs Temp 98.5 F 07/27/22 08:00 Pulse 66 07/27/22 08:00 Resp 18 07/27/22 08:22 BP 149/82 07/27/22 08:00 Pulse Ox 93 07/27/22 08:00 O2 Del Method 07/27/22 04:00 O2 Flow Rate 0 07/27/22 07:41 07/26/22 07/27/22 07/27/22 22:59 06:59 14:59 Intake Total 240 / 3518.333 480 / 3998.333 Output Total 1150 / 2350 600 / 2950 Balance -910 / 1168.333 -120 / 1048.333 Physical Exam Narrative: General exam no distress Cardiovascular regular rate and rhythm, no murmur Lungs clear no wheezing or crackles Abdomen is soft nontender positive bowel sounds exam deferred Extremities no cyanosis clubbing or edema. Left knee with dressing. Urinary Catheter Management: [place]: Cath Placed During This Visit: yes, but has since been removed by the nurse Reason for Continuing Indwelling Catheter: Decision to DC Catheter Urinary Catheter Date of Insertion: 07/25/22 Urinary Catheter Time of Insertion: 08:20 Date Urinary Catheter Removed: 07/25/22 Time Urinary Catheter Discontinued: 15:45 Data 07/27/22 04:50 07/27/22 04:50 A&P Assessment and plan (1) Left knee DJD: Postoperative day #2 status post arthroplasty. Overall doing well. Hemoglobin has dropped minimally. Eliquis will be given for DVT prophylaxis. Hold her meloxicam while she is getting Toradol as needed (2) Hypertension: Hold hydrochlorothiazide today as sodium is low. Blood pressure has been accep table (3) Anxiety and depression: Continue patient's Celexa (4) Cervical spondylosis with radiculopathy: Continue Neurontin, same dose Plan Hyponatremia. Hydrochlorothiazide was held. Sodium dropped through the day and salt tablets were given, and IV Lasix. With this sodium has come back up to 131. She can be discharged home today. Hydrochlorothiazide will be discontinued and she will go home on Lasix 20 mg daily. She was instructed not to drink large amounts of free water. She will follow-up with her primary care provider next week and have a BMP. Thank you for this consultation Discussed with attending Attestations Medical Necessity Statement*: As per primary Diagnoses Left knee DJD M17.12 Hypertension I10 Anxiety and depression F41.9; F32.A Cervical spondylosis with radiculopathy M47.22 Time Spent (min) 26
--- NOTE | 2022-07-27 10:17 | PC.NURSE ---
Patient discharge education reviewed with patient and grand-daughter, they verbally acknowledge discharge plan of care. Patient just received walker to go home.
== END 2022-07-27 10:18 | disposition home or self-care (01) ==
LOC: MEDSURG 11:02
PROVIDERS: Internal Medicine; Admitting Provider Student in an Organized Health Care Education/Training Program; PCP Family Medicine; Visit Provider Student in an Organized Health Care Education/Training Program
PROC: 8E0Y0CZ Robotic Assisted Procedure of Lower Extremity, Open Approach (ICD-10-PCS; CPT 27447; principal; 2022-07-25 08:15)
DX: M17.12 Unilateral primary osteoarthritis, left knee (principal); I10 Essential (primary) hypertension; F41.9 Anxiety disorder, unspecified; F32.A Depression, unspecified; M47.22 Other spondylosis with radiculopathy, cervical region
CPT/HCPCS: 27447; 36415; 51702; 73560; 80048; 81003; 84295; 85025; 86850; 86900; 97110; 97116; 97161; 97165; 97530; 97535; C1776; G0378; J0131; J0171; J0690; J1170; J1885; J1940; J2250; J2370; J2405; J2704; J2795; J3010; J7030; J7120

== ENCOUNTER → 2022-08-10 11:23 | Outpatient (BNVA) | payer OTHER, SELFPAY | PROVIDERS: PCP Family Medicine; Visit Provider Student in an Organized Health Care Education/Training Program | DX: Z96.652 Presence of left artificial knee joint (principal) | CPT/HCPCS: 73560; 73565 ==

== ENCOUNTER 2023-05-07 09:25 | Outpatient (CLI) | payer OTHER, SELFPAY ==
--- NOTE | 2023-05-07 10:00 | USCV_ITS ---
Sarika Victor Age: 62 Gender: F : 1960 Exam Date: 05/07/2023 09:48 Ordering Phys: Isidro Escobar MD Technologist: YVETTE Exam Location: [facility] [place] Indication: STROKE Risk Factors: Previous Vascular Surgery: Right Brachial BP: / Left Brachial BP: / Right Left Velocity (cm/s) Spectral Plaque Velocity (cm/s) Spectral Plaque Syst/Diast Broadening Syst/Diast Broadening 93.70/ 18.70 Prox CCA 98.60 / 19.70 97.00/ 25.40 Mid CCA 84.70 / 21.80 68.40/ 17.60 Distal CCA 73.00 / 24.90 83.80/ 15.40 Prox ICA 97.20 / 30.60 120.30/44.40 Mid ICA 111.40/ 37.10 127.40/46.70 Distal ICA 122.50/ 38.30 94.10 ECA 108.50 1.31 ICA/CCA 1.24 Antegrade Vertebral Antegrade 49.60/ 17.10 cm/s 87.90/ 27.40 cm/s Tri Subclavian Tri 131.5 144.3 0 0 CONCLUSIONS Right ICA stenosis <50%. Moderate atheromatous plaque right carotid bulb/ICA. Left ICA stenosis <50%. Moderate atheromatous plaque left carotid bulb/ICA. Normal antegrade Doppler flow noted in the right vertebral artery. Normal antegrade Doppler flow noted in the left vertebral artery. Eleazar Reeder MD (Electronically Signed) Final Date: 07 May 2023 15:44 S
== END 2023-05-07 09:26 | disposition home or self-care (01) ==
LOC: RAD 09:27
PROVIDERS: PCP Family Medicine; Visit Provider Psychiatry & Neurology Neurology
DX: I63.9 Cerebral infarction, unspecified (principal); M47.22 Other spondylosis with radiculopathy, cervical region; M26.629 Arthralgia of temporomandibular joint, unspecified side
CPT/HCPCS: 93880

== ENCOUNTER 2023-06-13 08:08 | Outpatient (CLI) | payer OTHER, SELFPAY ==
--- NOTE | 2023-06-13 08:30 | MR_ITS ---
WS: [id number] MRI HEAD WITH CONTRAST TECHNIQUE: Sagittal T1, T2 axial, T2 axial FLAIR, axial susceptibility weighted imaging, axial diffus ion weighted images, and coronal T2 images were obtained. Pre and post-T1 axial and post T1 coronal i mages. ADC and FSPGR images. CLINICAL INFORMATION: M47.22 - Other spondylosis with radiculopathy, cervical r... COMPARISON: None. FINDINGS: No evidence of restricted diffusion to suggest acute ischemia. Ventricular system and basilar cistern s are patent. Tiny chronic lacunar infarct LEFT cerebellum. Mild mucosal thickening in the paranasal sinuses. Mild mucosal thickening in the mastoid air cells. Minimal small vessel changes. No significa nt parenchymal volume loss. Normal optic chiasm and pituitary infundibulum. No abnormal gadolinium enhancement. Normal dural venous sinuses. No other suspicious findings. IMPRESSION: 1. No evidence of restricted diffusion to suggest acute ischemia. 2. Minimal small vessel changes. No significant parenchymal volume loss. 3. No abnormal gadolinium enhancement. 4. No hemosiderin on the susceptibly weighted images. 5. Tiny chronic lacunar infarct LEFT cerebellum. 6. Postoperative changes with fusion in the upper cervical spine.
[2023-06-13] MEDS: gadobenate dimeglumine 20 mL vial IV (09:08)
--- NOTE | 2023-06-13 09:15 | MR_ITS ---
WS: [id number] MRA HEAD TECHNIQUE: Axial 3-D TOF images obtained with axial images and axial, sagittal, and coronal 2-D refor matted images. CLINICAL INFORMATION: M47.22 - Other spondylosis with radiculopathy, cervical r... COMPARISON: None. FINDINGS: Distal vertebral arteries are patent. Basilar artery is patent. Somewhat diminutive basilar artery wi th persistent RIGHT AUDIT CLERKS SUPERVISOR. LEFT AUDIT CLERKS SUPERVISOR is patent. Mild atheromatous disease in the AUDIT CLERKS SUPERVISOR territory izzy aterally. Patent LEFT posterior communicating artery. Both ICAs are patent at the skull base. Normal vascularity to the MICHAEL territory. Normal vascularity t o the MCA territories bilaterally. No evidence of flow-limiting stenosis. IMPRESSION: 1. No evidence of proximal flow-limiting stenosis or aneurysm. 2. Mild intracranial atheromatous disease. 3. Anterior dominant circulation with persistent RIGHT AUDIT CLERKS SUPERVISOR.
== END 2023-06-13 08:09 | disposition home or self-care (01) ==
LOC: RAD 08:09
PROVIDERS: PCP Family Medicine; Visit Provider Psychiatry & Neurology Neurology
DX: M47.22 Other spondylosis with radiculopathy, cervical region (principal); M26.629 Arthralgia of temporomandibular joint, unspecified side; Z87.891 Personal history of nicotine dependence; Z98.1 Arthrodesis status; I67.2 Cerebral atherosclerosis; Q28.1 Other malformations of precerebral vessels
CPT/HCPCS: 70544; 70553; A9577